=== PATIENT | female | born 1970 ===

== ENCOUNTER 2024-11-11 11:25 | Inpatient (IN) | payer MEDICAID, SELFPAY ==
--- OUTSIDE RECORDS SUMMARY | 2024-11-11 11:29 | XMS_ITS | Clinical Summary ---
Author Organization [facility] Address [address] [facility] [address] Care Team Providers Care Mica Layer Name Role Phone Unavailable Primary Care Provider Unavailabl e Allergies Active Allergy Reactions Criticality Noted Date Comments Carisoprodol Other (See Comments) 01/05/2024 Pt reports severe increase in HR and drop in BP after taking Metformin Other (See Comments) 01/05/2024 Pt developed acidosis after taking, told by prescribing provider to not take again Olanzapine Other (See Comments) 01/05/2024 Pt reports stroke like symptoms after taking Penicillins Itching Low 01/05/2024 Medications albuterol sulfate HFA 90 mcg/actuation aerosol inhaler Take 2 Puffs by inhalation every 4 hours as needed for Shortness of Breath. Active aspirin (ECOTRIN EC) 81 mg Tablet, Delayed Release (E.C.) Take 81 mg by mouth daily. Active baclofen (LIORESAL) 10 mg tablet Take 10 mg by mouth 2 times daily. Active gabapentin (NEURONTIN) 300 mg capsule Take 300 mg by mouth 2 times daily. Active metoclopramide HCl (REGLAN) 5 mg tablet Take 5 mg by mouth 4 times daily. Active nortriptyline (PAMELOR) 25 mg capsule Take 25 mg by mouth daily at bedtime. Active omeprazole (PriLOSEC) 40 mg Capsule, Delayed Release(E.C.) Take 40 mg by mouth daily. Active oxyBUTYnin (DITROPAN XL) 5 mg Extended Release 24 hour tablet Take 5 mg by mouth daily. Active rivaroxaban (XARELTO) 2.5 mg Tablet Take 2.5 mg by mouth 2 times daily. Active dapagliflozin propanediol (FARXIGA) 5 mg Tablet Take 10 mg by mouth daily. Active dulaglutide (TRULICITY SUBCUT) Inject 0.5 mL by subcutaneous injection. Active naloxone (NARCAN) 4 mg/spray Preemption, Non-Aerosol EMERGENCY USE ONLY: Administer 1 spray (4 mg) in one nostril one time. May repeat in alternating nostrils every 2-3 min until responsive or EMS arrives. 2 Each 3 01/13/20 24 Active Lantus Solostar U-100 Insulin 100 unit/mL (3 mL) solution for injection GIVE 20 UNITS SUBCUTANEOUSLY DAILY BEFORE BEDTIME. 06/08/19 25 Active ARIPiprazole (ABILIFY) 10 mg tablet Take 10 mg by mouth daily. Active albuterol (PROVENTIL,BRENT KRISTA) 0.63 mg/3 mL Solution for Nebulization Take 0.63 mg by inhalation every 4 hours as needed for Shortness of Breath. Active OneTouch Verio test strips Strip USE ONE STRIP TO CHECK BLOOD SUGAR BEFORE EACH MEAL AND AT BEDTIME Active OneTouch Verio Flex meter USE TO CHECK BLOOD GLUCOSE Active HYDROcodone-acet aminophen (NORCO) 10-325 mg Tablet Take 1 Tablet by mouth every 6 hours. 05/18/19 25 Active Insulin [place], Disposable, (TRUEplus Pen Needle) 31 gauge x 1/4 Needle USE DIRECTED. 06/02/19 24 Active Active Problems Problem Noted Date Diagnosed Date Chronic hepatitis C without hepatic coma 025 Substance abuse 01/09/2024 High risk medication use 01/09/2024 HLD (hyperlipidemia) 01/06/2024 Mood disorder 01/06/2024 Acute osteomyelitis of left foot 01/05/2024 Type 2 diabetes mellitus wit h hypoglycemia without coma, with long-term current use of insulin 09/17/2023 Fibromyalgia 07/28/2023 Urinary incontinence 04/08/2023 Diabetic neuropathy, type II diabetes mellitus 0 09/11/2022 Stage 3a chronic kidney disease 09/11/2022 Type 2 diabetes mellitus, wi thout long-term current use of insulin 11/21/2021 Gastroesophageal reflux disease without esophagi tis 11/21/2021 Resolved Problems Problem Noted Date Diagnosed Date Resolved Date Abdominal pain 02/07/2021 07/27/2024 Overview (07/27/2024): Added automatically from request for surgery Change in bowel habits 02/07/202107/27 Overview (07/27/2024): Added automatically from request for surgery Diarrhea 02/07/2021 07/27/2024 Overview (07/27/2024): Added automatically from request for surgery Dyspepsia 02/07/2021 07/27/2024 Overview (07/27/2024): Added automatically from request for surgery Encounters Date Type Department Care Team Description 11/09/2024 External Device Data [facility] Provider, Abstract 10/26/2024 External Device Data [facility] Provider, Abstract 10/05/2024 External Device Data [facility] Provider, Abstract 08/16/2024 Telephone [facility] Vascular Surgery [id number] [facility] [address] [place] [address] Jersey Jain MD Appointment Verification from Last 3 Months Immunizations Immunization Administration Dates Next Due (PREVNAR 20)(6 WKS UP) PNEUM OCOCCAL CONJUGATE VACCINE 20-VALENT (PCV20), POLYSACCHARIDE SAD667 CONJUGATE, ADJUVANT 0.5 ML (PF) IM 01/05/2024(Deferred: - pt wants to receive at discharge) Family History Medical History Relation Name Comments Heart Disease Father Breast Cancer Mother Cervical Cancer Mother Heart Disease Mother Relation Name Status Comments Father Mother Social History Tobacco Use Types Packs/Day Years Used Date Smoking Tobacco: Every Day Cigarettes 3.8 20.5 Started: 05/12/2004 Smokeless Tobacco: Never Tobacco Cessation:Ready to Q uit: Not Asked; Counseling Given: Not Answered Comments:Pt states that she has decreased tobacco use from 4 packs daily to 1/2 of one pack daily in the past 2.5 weeks Alcohol Use Standard Drinks/Week Comments Not Currently 0 (1 standard drink = 0.6 oz pur e alcohol) Financial Resource Strain Answer Date R ecorded How hard is it for you to pa y for the very basics like food, housing, medical care, and heating? Hard 01/13/2024 Feeling Safe Answer Date Recorded Are you in a relationship wi th someone who hurts you emotionally and/or physically? 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[employer] Gender Identity Not on file Sexual Orientation Not on file Last Filed Vital Signs Vital Sign Reading Time Taken Comments Blood Pressure 178/86 03/15/2024 9:13 AM VP PACKAGING Pulse 89 03/15/2024 9:13 AM VP PACKAGING Temperature 36.1 C (97 F) 01/13/2024 8:14 AM CDT Respiratory Rate 18 01/13/2024 8:14 AM CDT Oxygen Saturation 97% 03/15/2024 9:13 AM VP PACKAGING Inhaled Oxygen Concentration - - Weight 80.7 kg (178 lb) 03/15/2024 9:13 AM VP PACKAGING Height 165.1 cm (5' 5 ) 01/05/2024 10:42 PM CDT Body Mass Index 29.62 01/05/2024 10:42 PM CDT Plan of Treatment Health Maintenance Due Date Last Done Comments DIABETES ANNUAL RETINAL EXAM 10/01/1987 DIABETES MICROALBUMIN ANNUAL SCREEN 10/01/1987 LDL CHOLESTEROL ANNUAL 10/01/1987 DTAP/TDAP/TD VACCINES (1 - Tdap) 1988 HEPATITIS B VACCINES (1 of 3 - 19+ 3-dose series) 1988 HPV/Cotest (21-29) 1990 CERVICAL CANCER SCREENING 10/01/1999 HPV/Cotest (30-65) 10/01/1999 PAP SMEAR 10/01/1999 BREAST CANCER SCREENING 2009 COLORECTAL SCREENING 2014 Colorectal Cancer Screening 2014 FIT-DNA Q 3 years 2014 FIT/FOBT Q 1 year 2014 Flex Sig/CT Colonography Q 5 years 2014 ZOSTER VACCINE (1 of 2) 10/01/2019 Lung Cancer Screening 12/18/2022 12/18/2021 DIABETES ANNUAL FOOT EXAM 04/23/2023 04/23/2022 COVID-19 Vaccine ( 2023- season) 01/11/202407/2020, 12/11/2020 DIABETES HBA1C Q 6 MONTHS 07/09/2024 01/08/2024, 11/2023 INFLUENZA VACCINE (#1) 2024 02/08/2022, 2015 Procedures Procedure Name Priority Date/Time Associated Diagnosis Comments HEMOGLOBIN A1C Routine 01/08/2024 9:24 AM CDT from Last 3 Months or Most Recently Relevant to Health Maintenance Results * (ABNORMAL) HEMOGLOBIN A1C (01/08/2024 9:24 AM CDT) HEMOGLOBIN A1C 8.9(H) <=5.6 % 01/09/2024 12:00 PM CDT [facility] EST. AVG GLUCOSE, A1C 209 mg/dL 01/09/2024 12:00 PM CDT [facility] Blood Venipuncture / Unknown 01/08/2024 9:24 AM CDT 01/08/2024 9:46 AM CDT Narrative [facility] - 01/09/2024 12:00 PM CDT HGB A1C INTERPRETATION NORMAL: <5.7% PRE-DIABETES: 5.7 - 6.4% DIABETES: 6.5% OR GREATER us Jamshid Arnold MD CHEMISTRY ORDERABLES F inal Result [facility] CLIA # [id number] [facility] [address] [place] [address] from Last 3 Months or Most Recently Relevant to Health Maintenance Insurance RX [facility] Commercial RX [employer] (INTERNAL) [facility] [employer] [place]ICA[place] Advance Directives For more information, please contact: [phone] Documents on File Type Date Recorded Patient Spanish Lecturer Expl anation Advance Directive POA 01/14/2024 1:47 PM Ad espinoza Directive POA * Full Code (Latest Code Status on File) Date Activated Date Inactivated Comments 01/05/2024 5:58 PM 01/13/2024 5:28 PM
--- OUTSIDE RECORDS SUMMARY | 2024-11-11 11:29 | XMS_ITS | Encounter Summary ---
Author Organization [employer] Address 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
[2024-11-11 11:36] VITALS: BP 141/71; PULSE 83; RESP 22; TEMP 36.8; O2SAT 98; BMI 34.1
--- NOTE | 2024-11-11 12:14 | PC.NURSE ---
96 hr rights reviewed with pt @0132 with assistance of [facility] aviation tactical readiness officer Nigel Kim. All education reviewed at this time. Pt verbalized understanding to the hold parameters. Pt copy left @bedside with pt. Pt provided a sandwich, pudding, soda, and water. No further needs.
[2024-11-11 12:23] LABS: Hematocrit 39.1 % (36-47); Hemoglobin 12.30 g/dL (11.27-16.99); Mean Corpuscular HGB Conc 31.5 g/dL (30-55); Mean Corpuscular Hemoglobin 27.7 pg (27-33); Mean Corpuscular Volume 88.1 fl (85-98); Nucleated Red Blood Cells % 0 %; Platelet Count 292 10^3/cmm (157-399); Red Blood Count 4.44 10^6/uL (3.85-5.65); White Blood Count 8.47 10^3/uL (3.29-11.43)
[2024-11-11 12:42] LABS: Acetaminophen < 5.0 ug/mL (10-30); Alanine Aminotransferase 10 U/L (0-33); Albumin Level 3.6 g/dL (3.5-5.2); Alkaline Phosphatase 150 U/L (35-105); Anion Gap 17.1 (5-19); Aspartate Amino Transferase 11 U/L (0-32); Blood Urea Nitrogen 24 mg/dL (6-20); Calcium 8.8 mg/dL (8.5-10.5); Carbon Dioxide 19 mmol/L (22-29); Chloride 107 mmol/L (98-107); Creatinine Clr Calc Pharmacy 71.6423; Globulin 3.0 g/dL (1.3-4.6); Glucose 220 mg/dL (65-115); Osmolality Calculated 299 mOsm/kg (285-295); Potassium 4.1 mmol/L (3.5-5.1); Salicylate < 0.3 mg/dL (3-10); Sodium 139 mmol/L (136-145); Total Protein 6.6 g/dL (6.6-8.7)
[2024-11-11 12:44] LABS: PCP Screen Urine Negative (Negative)
--- NOTE | 2024-11-11 13:08 | ED.C_ITS ---
HPI - Psych 2 General: Chief Complaint: Psychiatric Symptoms Stated Complaint: 96 Time Seen by Provider: 11/11/24 11:34 History of Present Illness: This patient is a 54-year-old presenting with homicidal and suicidal ideation. She also admits to hallucinations. She reports being paranoid. She uses meth but does not drink alcohol. She reports that she has been trying to get into detox and as part of that was on the phone with a farmworker fryer farm last night. She told them that she was feeling suicidal and homicidal and the police came to get her and brought her here today on a 96-hour hold. She also reports a history of diabetes and is not sure if her blood sugar is too high or too low. She is not on any antipsychotic medications at this time. She says she does take prescription medicines but she does not know the names. She is not happy to be here but she is calm and cooperative. Related Data Allergies Allergy/AdvReac Type Severity Reaction Status Date / Time bupropion (From Wellbutrin) Allergy Unknown Verified 11/11/24 11:46 carisoprodol (From Soma) Allergy Unknown Verified 11/11/24 11:46 olanzapine Allergy Unknown Verified 11/11/24 11:46 Penicillins Allergy Unknown Verified 11/11/24 11:46 Physical Exam 2 Const: COMMON NORMALS: no acute distress, patient oriented x3, no limitations and alert GENERAL APPEARANCE: cooperative and comfortable HENMT: HEAD & SCALP: normal to inspection FACE & SINUS: normal facial exam Eye: GENERAL EYE: appearance normal, both eyes and all related structures Neck/C-Spine: COMMON NORMALS: supple, no meningeal signs and no JVD Chest: COMMONS NORMALS: normal inspection of the chest Resp: COMMON NORMALS: normal respiratory effort, No use of accessory muscles and clear to auscultation bilaterally AUSCULTATION: clear to auscultation bilaterally Cardio: COMMON NORMALS: no JVD, regular rate, regular rhythm and No murmurs present (Cardio) RATE: regular rate RHYTHM: regular rhythm GI: COMMON NORMALS: Normal to inspection, nondistended, normoactive bowel sounds present, Soft to palpation and non-tender INSPECTION: Yes normal to inspection AUSCULTATION: Yes normoactive bowel sounds PALPATION: Yes Soft to palpation Back/Pelvis: COMMON NORMALS: thoracic and lumbar spine normal to inspection Extremity: COMMON NORMALS: normal to inspection Neuro: COMMON NORMALS: patient oriented x3, moves all extremities, no focal motor deficits and no sensory deficits noted SENSORIUM/ORIENTATION: Yes alert MENINGEAL SIGNS: Yes no meningeal signs Psych: COMMON NORMALS: mental status grossly normal, cooperative and normal affect OTHER: Admits to homicidal ideation. She says she does not tolerate people well and when she gets angry she thinks about killing people around her. She does admit that she was suicidal earlier but does deny that currently. She does admit to hallucinations. Her speech is coherent. She is appropriately dressed for the weather. Skin: COMMON NORMALS: no rashes or lesions noted and turgor normal GENERAL SKIN EXAM: no rashes or lesions noted and turgor normal Course 2 Vital Signs: Vital signs: Vital Signs Temperature 98.3 F 11/11/24 11:36 Pulse Rate 83 11/11/24 11:36 Respiratory Rate 22 H 11/11/24 11:36 Blood Pressure 141/71 11/11/24 11:36 Pulse Oximetry 98 11/11/24 11:36 MDM - Psych Medical Decision Making This patient is here on a 96-hour hold. She is gravely disabled due to psychiatric symptoms. She is a danger to herself and others due to suicidal and homicidal ideation. Her glucose was 221. She was medically cleared and will be admitted to the [facility]PU. Lab Data 11/11/24 12:02 11/11/24 12:02 Laboratory Results WBC 8.47 10^3/uL (3.29-11.43) 11/11/24 12:02 RBC 4.44 10^6/uL (3.85-5.65) 11/11/24 12:02 Hgb 12.30 g/dL (11.27-16.99) 11/11/24 12:02 Hct 39.1 % (36-47) 11/11/24 12:02 MCV 88.1 fl (85-98) 11/11/24 12:02 MCH 27.7 pg (27-33) 11/11/24 12:02 MCHC 31.5 g/dL (30-55) 11/11/24 12:02 RDW 14.6 % (12.1-15.1) 11/11/24 12:02 Plt Count 292 10^3/cmm (157-399) 11/11/24 12:02 MPV 11.0 fL (7.4-10.4) H 11/11/24 12:02 Neut % (Auto) 68.0 % 11/11/24 12:02 Lymph % (Auto) 23.7 % 11/11/24 12:02 [place] % (Auto) 5.8 % 11/11/24 12:02 Eos % (Auto) 1.8 % 11/11/24 12:02 Baso % (Auto) 0.2 % 11/11/24 12:02 Neut # (Auto) 5.76 10^3/uL (1.8-7.7) 11/11/24 12:02 Lymph # (Auto) 2.0 10^3/uL (0.8-4.8) 11/11/24 12:02 [place] # (Auto) 0.5 10^3/uL (0.2-0.9) 11/11/24 12:02 Eos # (Auto) 0.2 10^3/uL (0.0-0.8) 11/11/24 12:02 Baso # (Auto) 0.0 10^3/uL (0.0-0.1) 11/11/24 12:02 Nucleated RBC % (auto) 0 % 11/11/24 12:02 Nucleated RBCs # 0.0 /100WBC 11/11/24 12:02 Sodium 139 mmol/L (136-145) 11/11/24 12:02 Potassium 4.1 mmol/L (3.5-5.1) 11/11/24 12:02 Chloride 107 mmol/L (98-107) 11/11/24 12:02 Carbon Dioxide 19 mmol/L (22-29) L 11/11/24 12:02 Anion Gap 17.1 (5-19) 11/11/24 12:02 BUN 24 mg/dL (6-20) H 11/11/24 12:02 Creatinine 1.0 mg/dL (0.5-0.9) H 11/11/24 12:02 GFR Calculation 57.6 mL/min (90-130) L 11/11/24 12:02 Glucose 220 mg/dL (65-115) H 11/11/24 12:02 POC Glucose 221 mg/dL (70-110) H 11/11/24 12:03 Calculated Osmolality 299 mOsm/kg (285-295) H 11/11/24 12:02 Calcium 8.8 mg/dL (8.5-10.5) 11/11/24 12:02 Total Bilirubin 0.2 mg/dL (0.15-1.2) 11/11/24 12:02 AST 11 U/L (0-32) 11/11/24 12:02 ALT 10 U/L (0-33) 11/11/24 12:02 Alkaline Phosphatase 150 U/L (35-105) H 11/11/24 12:02 Total Protein 6.6 g/dL (6.6-8.7) 11/11/24 12:02 Albumin 3.6 g/dL (3.5-5.2) 11/11/24 12:02 Globulin 3.0 g/dL (1.3-4.6) 11/11/24 12:02 Salicylates < 0.3 mg/dL (3-10) L 11/11/24 12:02 Urine Opiates Screen Negative ng/mL (Negative) 11/11/24 11:45 Acetaminophen < 5.0 ug/mL (10-30) L 11/11/24 12:02 Ur Barbiturates Screen Negative ng/mL (Negative) 11/11/24 11:45 Ur Phencyclidine Scrn Negative ng/mL (Negative) 11/11/24 11:45 Ur Amphetamines Screen Positive ng/mL (Negative) H 11/11/24 11:45 U Benzodiazepines Scrn Negative ng/mL (Negative) 11/11/24 11:45 Urine Cocaine Screen Negative ng/mL (Negative) 11/11/24 11:45 U Marijuana (THC) Screen Negative ng/mL (Negative) 11/11/24 11:45 No radiology studies performed this visit Discharge Plan Discharge Patient Disposition: Admitted As Inpatient Admit Provider: Steven Morataya Clinical Impression: Suicidal ideation, Homicidal ideations, Methamphetamine abuse, Diabetes Condition: Stable Coding Level of Care Code ED Inverted Block Operator for Jt De Guzman
[2024-11-11 14:15] VITALS: BP 143/73; PULSE 70; O2SAT 98
[2024-11-11 14:34] VITALS: BP 150/103; PULSE 74; RESP 18; TEMP 36.5; O2SAT 97
[2024-11-11] MEDS: sulfamethoxazole-trimeth DS 160-800 mg Tablet 1 TAB PO (16:28)
[2024-11-11] MEDS: cholestyramine powder 4 gm Pkt PO (20:12)
[2024-11-11 20:20] VITALS: BP 141/72; PULSE 67; RESP 18; TEMP 36.7; O2SAT 97
[2024-11-11] MEDS: insulin glargine 100 units/1 mL 30 UNIT SUBCUT (20:21)
[2024-11-11 20:22] VITALS: BP 141/72; PULSE 67; RESP 18; TEMP 36.7; O2SAT 97
[2024-11-12 06:00] VITALS: BP 144/61; PULSE 74; RESP 18; TEMP 36.6; O2SAT 98
[2024-11-12] MEDS: cholestyramine powder 4 gm Pkt PO ×3 (09:03→21:51)
[2024-11-12] MEDS: sulfamethoxazole-trimeth DS 160-800 mg Tablet 1 TAB PO ×2 (09:03→17:02)
--- NOTE | 2024-11-12 11:29 | PC.NURSE ---
blood sugar 209
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
[2024-11-12] MEDS: HYDROcodone-acetaminophen 5-325 mg Tablet 1 TAB PO (13:12)
[2024-11-12 14:00] VITALS: BP 92/60; PULSE 59; RESP 16; TEMP 37
[2024-11-12 20:16] VITALS: BP 117/74; PULSE 67; RESP 18; TEMP 36.4; O2SAT 97
[2024-11-12] MEDS: insulin glargine 100 units/1 mL 30 UNIT SUBCUT (21:40)
[2024-11-13 06:00] VITALS: BP 111/64; PULSE 53; RESP 16; TEMP 37.1; O2SAT 97
[2024-11-13] MEDS: HYDROcodone-acetaminophen 5-325 mg Tablet 1 TAB PO ×2 (08:10→15:37)
[2024-11-13] MEDS: sulfamethoxazole-trimeth DS 160-800 mg Tablet 1 TAB PO ×2 (08:10→17:00)
[2024-11-13] MEDS: cholestyramine powder 4 gm Pkt PO ×3 (08:11→20:44)
[2024-11-13 14:00] VITALS: BP 112/64; PULSE 52; RESP 16; TEMP 37.1; O2SAT 98
--- NOTE | 2024-11-13 15:19 | P.NPUPN_ITS ---
Subjective NPU 2 Subjective: 54-year-old female with a history of PTS D, methamphetamine abuse and psychosis admitted with depression and auditory hallucinations. Patient had continued to report hearing voices and stated that she continued to be distracted by the presence of demons. She had remained irritable and continue to report feeling paranoid. She states she was upset to find out that she had been kicked out of her living situation after she had called the police yesterday. She had reported continued confusion at this time. She reports that she is now currently homeless. She denied any racing thoughts. Mental Status Exam 2 MSE Comments: She is a casually dressed white female who appeared older than her stated age with fair eye contact and normal gait. She was guarded on interview. There was no evidence of any abnormal involuntary motor movements, tics, or tremors appreciated. Her speech was normal in regards to rate, rhythm, and prosody. Her mood was described as upset. Her affect was irritable and mood congruent. Her thought process was linear, logical and goal-directed. Her thought content revealed homicidal and suicidal thoughts. She had endorsed hearing voices and seeing demons. She did appear to be responding to internal stimuli. Her recent and remote memory were grossly intact. She was alert and oriented to person, place, time, and situation. Her attention span was fair. Her insight is poor. Her judgment is poor. Her impulse control appears limited. Vitals/I&O/Wt Last Vital Signs Temp 98.7 F 11/13/24 14:00 Pulse 52 L 11/13/24 14:00 Resp 16 11/13/24 14:00 BP 112/64 11/13/24 14:00 Pulse Ox 98 11/13/24 14:00 O2 Del Method Room Air 11/13/24 14:00 Data NPU 11/11/24 12:02 11/11/24 12:02 A&P Assessment and plan (1) Schizoaffective disorder: (2) Suicidal ideation: (3) Methamphetamine abuse: (4) PTSD (post-traumatic stress disorder): (5) Homicidal ideations: Plan 54-year-old female with a history of psychosis along with suicidal and homicidal ideation currently using methamphetamine with increased paranoia and request to change her medications to help her better manage her psychosis. #1.? Engage patient in individual milieu and group therapy. #2?? Recommend sober living treatment at the highest level of care to which the patient is willing to commit #3??? Invega 3mg daily with plan for increase to 6mg daily to target psychosis. ?? #4?? TO-15 minute checks? #5?? Will attempt to gather collateral information. Consider inpatient substance abuse treatment. PDMP PDMP Reviewed: Not Reviewed Involuntary Hold Information 2 Hold Status: Legal Status: 96 Hour Hold Date/Time Hold Expires: 11/18/24 @ 11:30 Attestations NPU 2 Medical Necessity Statement*: Inpatient hospitalization is medically necessary and deemed to ?be ?the clinically appropriate intervention ?at this time.? We will monitor/initiate medications and make changes as indicated.? The patient?s likely length of stay 5-7 days. Coding Level of Care Code Acute Code for [facility] Diagnoses Schizoaffective disorder F25.9 Suicidal ideation R45.851 Methamphetamine abuse F15.10 PTSD (post-traumatic stress disorder) F43.10 Homicidal ideations R45.850
[2024-11-13] MEDS: insulin glargine 100 units/1 mL 30 UNIT SUBCUT (20:43)
[2024-11-13 21:55] VITALS: BP 108/63; PULSE 67; RESP 17; TEMP 36.7; O2SAT 98
[2024-11-14] MEDS: HYDROcodone-acetaminophen 5-325 mg Tablet 1 TAB PO ×4 (01:46→20:00)
[2024-11-14 06:00] VITALS: BP 114/53; PULSE 68; RESP 16; TEMP 37.1; O2SAT 97; BMI 28.4
[2024-11-14] MEDS: cholestyramine powder 4 gm Pkt PO ×3 (08:33→20:58)
[2024-11-14] MEDS: sulfamethoxazole-trimeth DS 160-800 mg Tablet 1 TAB PO ×2 (08:35→17:14)
--- NOTE | 2024-11-14 12:46 | P.NPUPN_ITS ---
Subjective NPU 2 Subjective: 54-year-old female with a history of PTS D, methamphetamine abuse and psychosis admitted with depression and auditory hallucinations. The patient had reported that she was feeling better. She had reported continued auditory hallucinations but stated that they were quieter. She had reported some difficulties falling asleep. She had complained of her left arm itching. The patient reported that she was no longer feeling suicidal. She had reported that she was hopeful about going to inpatient substance abuse treatment. She had reported an extended history of methamphetamine abuse. She continues to isolate herself on the milieu. Mental Status Exam 2 MSE Comments: She is a casually dressed white female who appeared older than her stated age with fair eye contact and normal gait. She was guarded on interview. There was no evidence of any abnormal involuntary motor movements, tics, or tremors appreciated. Her speech was normal in regards to volume with some increased latency appreciated. Her mood was described as better. Her affect was flat today. Her thought process was linear, logical and goal-directed. Her thought content showed no evidence of suicidal or homicidal ideation. She had endorsed hearing voices and seeing demons. She did appear to be responding to internal stimuli as she appeared internally preoccupied. Her recent and remote memory were grossly intact. She was alert and oriented to person, place, time, and situation. Her attention span was fair. Her insight is poor. Her judgment is poor. Her impulse control appears limited. Vitals/I&O/Wt Last Vital Signs Temp 98.7 F 11/14/24 06:00 Pulse 68 11/14/24 06:00 Resp 16 11/14/24 06:00 BP 114/53 11/14/24 06:00 Pulse Ox 97 11/14/24 06:00 O2 Del Method Room Air 11/14/24 06:00 Weight last 48 hrs Weight 77.564 kg Data NPU 11/11/24 12:02 11/11/24 12:02 A&P Assessment and plan (1) Schizoaffective disorder: (2) Suicidal ideation: (3) Methamphetamine abuse: (4) PTSD (post-traumatic stress disorder): (5) Homicidal ideations: Plan 54-year-old female with a history of psychosis along with suicidal and homicidal ideation currently using methamphetamine with increased paranoia and request to change her medications to help her better manage her psychosis. #1.? Engage patient in individual milieu and group therapy. #2?? Recommend sober living treatment at the highest level of care to which the patient is willing to commit #3??? Increase invega to 6mg at night to target psychosis. ?? #4?? TO-15 minute checks? #5?? Will attempt to gather collateral information. Consider inpatient substance abuse treatment. PDMP PDMP Reviewed: Not Reviewed Involuntary Hold Information 2 Hold Status: Legal Status: 96 Hour Hold Date/Time Hold Expires: 11/18/24 @ 11:30 Attestations NPU 2 Medical Necessity Statement*: Inpatient hospitalization is medically necessary and deemed to ?be ?the clinically appropriate intervention ?at this time.? We will monitor/initiate medications and make changes as indicated.? The patient?s likely length of stay 3-4 days. Coding Level of Care Code Acute Code for [facility] Diagnoses Schizoaffective disorder F25.9 Suicidal ideation R45.851 Methamphetamine abuse F15.10 PTSD (post-traumatic stress disorder) F43.10 Homicidal ideations R45.850
[2024-11-14 14:00] VITALS: BP 140/72; PULSE 59; RESP 16; TEMP 36.6; O2SAT 99
[2024-11-14 20:00] LABS: HIV 1 & 2 Antigen Non-Reactive (Non-Reactiv)
[2024-11-14] MEDS: insulin glargine 100 units/1 mL 30 UNIT SUBCUT (20:24)
[2024-11-14 20:39] LABS: Hepatitis B Surface Antigen Non-Reactive (Nonreactive)
[2024-11-14 20:44] VITALS: BP 124/72; PULSE 70; RESP 18; TEMP 36.7; O2SAT 99
[2024-11-15] MEDS: HYDROcodone-acetaminophen 5-325 mg Tablet 1 TAB PO ×4 (02:07→21:48)
[2024-11-15 06:00] VITALS: BP 126/65; PULSE 64; RESP 16; TEMP 36.5; O2SAT 100
[2024-11-15] MEDS: cholestyramine powder 4 gm Pkt PO ×3 (08:56→19:55)
[2024-11-15] MEDS: sulfamethoxazole-trimeth DS 160-800 mg Tablet 1 TAB PO ×2 (08:56→17:32)
[2024-11-15] MEDS: paliperidone ER 6 mg Tablet PO (08:56)
[2024-11-15 14:00] VITALS: BP 126/68; PULSE 56; RESP 17; TEMP 36.4; O2SAT 98
--- NOTE | 2024-11-15 17:33 | P.NPUPN_ITS ---
Subjective NPU 2 Subjective: 54-year-old female with a history of PTS D, methamphetamine abuse and psychosis admitted with depression and auditory hallucinations. The patient had endorsed feeling better. She had reported that she would like to consider going to a inpatient rehabilitation center in order to receive further treatment for methamphetamine abuse. She had continued at times to be distracted but stated that she was feeling better and stated that the voices were quieter. Mental Status Exam 2 MSE Comments: She is a casually dressed white female who appeared older than her stated age with fair eye contact and normal gait. She was guarded on interview. There was no evidence of any abnormal involuntary motor movements, tics, or tremors appreciated. Her speech was normal in regards to volume with some increased latency appreciated. Her mood was described as better. Her affect remained flat. Her thought process was linear, logical and goal-directed. Her thought content showed no evidence of suicidal or homicidal ideation currently. She had endorsed hearing voices but denied visual hallucinations. She did appear to be responding to internal stimuli as she appeared internally preoccupied. Her recent and remote memory were grossly intact. She was alert and oriented to person, place, time, and situation. Her attention span was limited. Her insight is poor. Her judgment is poor. Her impulse control appears limited. Vitals/I&O/Wt Last Vital Signs Temp 97.5 F L 11/15/24 14:00 Pulse 56 L 11/15/24 14:00 Resp 17 11/15/24 14:00 BP 126/68 11/15/24 14:00 Pulse Ox 98 11/15/24 14:00 O2 Del Method Room Air 11/15/24 06:00 Weight last 48 hrs Weight 77.564 kg Data NPU 11/11/24 12:02 11/11/24 12:02 A&P Assessment and plan (1) Schizoaffective disorder: (2) Suicidal ideation: (3) Methamphetamine abuse: (4) PTSD (post-traumatic stress disorder): (5) Homicidal ideations: Plan 54-year-old female with a history of psychosis along with suicidal and homicidal ideation currently using methamphetamine with increased paranoia and request to change her medications to help her better manage her psychosis. #1.? Engage patient in individual milieu and group therapy. #2?? Recommend sober living treatment at the highest level of care to which the patient is willing to commit #3??? Continue invega at 6mg daily to target psychosis. ?? #4?? TO-15 minute checks? #5?? Will attempt to gather collateral information. Consider inpatient substance abuse treatment. Likely discharge to inpatient substance abuse tx center if bed available PDMP PDMP Reviewed: Not Reviewed Involuntary Hold Information 2 Hold Status: Legal Status: 96 Hour Hold Date/Time Hold Expires: 11/18/24 @ 11:30 Attestations NPU 2 Medical Necessity Statement*: Inpatient hospitalization is medically necessary and deemed to ?be ?the clinically appropriate intervention ?at this time.? We will monitor/initiate medications and make changes as indicated.? The patient?s likely length of stay 1-2 days. Coding Level of Care Code Acute Code for [facility] Diagnoses Schizoaffective disorder F25.9 Suicidal ideation R45.851 Methamphetamine abuse F15.10 PTSD (post-traumatic stress disorder) F43.10 Homicidal ideations R45.850
[2024-11-15] MEDS: insulin glargine 100 units/1 mL 30 UNIT SUBCUT (19:54)
[2024-11-15 20:21] VITALS: BP 105/53; PULSE 60; RESP 16; TEMP 36.7; O2SAT 97
[2024-11-15 21:21] VITALS: BP 105/53; PULSE 60; RESP 16; TEMP 36.7; O2SAT 97
[2024-11-16 06:00] VITALS: BP 122/67; PULSE 55; RESP 16; TEMP 36.7; O2SAT 96
[2024-11-16] MEDS: paliperidone ER 6 mg Tablet PO (08:42)
[2024-11-16] MEDS: sulfamethoxazole-trimeth DS 160-800 mg Tablet 1 TAB PO (08:42)
[2024-11-16] MEDS: cholestyramine powder 4 gm Pkt PO (08:43)
[2024-11-16] MEDS: HYDROcodone-acetaminophen 5-325 mg Tablet 1 TAB PO (08:47)
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
[2024-11-16 12:08] VITALS: BP 122/67; PULSE 55; RESP 16; TEMP 36.7; O2SAT 96
[2024-11-16 14:09] LABS: HEP C RNA Viral Load Quant <1.18 NOT DETECTED Log IU/mL (NOT DETECTED); HEP C RNA Viral Load Quant <15 NOT DETECTED IU/mL (NOT DETECTED)
== END 2024-11-16 13:52 | disposition home or self-care (01) | DRG 885 ==
LOC: ER 13:12 → NP 13:16
PROVIDERS: Family Medicine; Admitting Provider Psychiatry & Neurology Psychiatry; Emergency Provider Emergency Medicine; Visit Provider Psychiatry & Neurology Psychiatry
DX: F25.9 Schizoaffective disorder, unspecified (principal); R45.851 Suicidal ideations; Z59.00 Homelessness unspecified; F15.10 Other stimulant abuse, uncomplicated; F43.10 Post-traumatic stress disorder, unspecified; R45.850 Homicidal ideations; Z91.51 Personal history of suicidal behavior; Z62.810 Personal history of physical and sexual abuse in childhood; E11.40 Type 2 diabetes mellitus with diabetic neuropathy, unspecified; Z79.4 Long term (current) use of insulin; E11.22 Type 2 diabetes mellitus with diabetic chronic kidney disease; I12.9 Hypertensive chronic kidney disease with stage 1 through stage 4 chronic kidney disease, or unspecified chronic kidney disease; N18.9 Chronic kidney disease, unspecified; Z89.422 Acquired absence of other left toe(s); Z89.022 Acquired absence of left finger(s); Z81.8 Family history of other mental and behavioral disorders; F32.A Depression, unspecified
CPT/HCPCS: 36415; 36416; 80053; 80306; 80307; 82962; 85025; 86706; 86803; 87340; 87522; 87806; 96372; 97150; 97165; 99285; J1815; J9999